=== PATIENT | female | born 2000 | race Caucasian/White ===

== ENCOUNTER 2019-11-27 22:26 | Emergency (ER) | payer MEDICAID ==
[~2019-11-27] VITALS: Ht 175.3 cm; Wt 95.3 kg
--- NOTE | 2019-11-27 22:26 | NUR ---
C/O COUGH, CONGEST, FEVER, SOB X3 DAYS. CP WHEN COUGHING, PT AWAKE, ALERT, AAXO4, NAD NOTED, PENDING MD CHAVEZ
--- NOTE | 2019-11-27 23:44 | NUR ---
pt to bed 18
--- NOTE | 2019-11-28 00:05 | NUR ---
pt resting quietly, no acute distress noted, resp even and unlabored. call light within reach. will continue to monitor pt.
[2019-11-28 00:16] LABS: BASOPHILS % (AUTO) 0.5 % (0.0-2.0); EOSINOPHILS % (AUTO) 3.1 % (0.0-6.0); HEMATOCRIT 41 % (33-45); HEMOGLOBIN 13.6 g/dL (11.5-14.8); LYMPHOCYTES # (AUTO) 0.8 /CMM (0.8-4.8); LYMPHOCYTES % (AUTO) 15.6 % (20.0-44.0); MEAN CORPUSCULAR HGB CONC 33 g/dl (31.0-36.0); MEAN CORPUSCULAR VOLUME 91 fL (82-100); MONOCYTES # (AUTO) 0.8 /CMM (0.1-1.30); MONOCYTES % (AUTO) 14.7 % (2.0-12.0); NEUTROPHILS # (AUTO) 3.6 /CMM (1.8-8.9); NEUTROPHILS % (AUTO) 66.1 % (43.0-81.0); PLATELET COUNT (AUTO) 211 /CMM (150-450); RED BLOOD CELL COUNT(AUTO) 4.49 MIL/uL (4.0-5.2); WHITE BLOOD COUNT (AUTO) 5.4 K/uL (4.3-11.0)
[2019-11-28 00:27] LABS: CALCIUM, SERUM 9.2 mg/dL (8.5-10.1); CREATININE 0.8 mg/dL (0.6-1.3); POTASSIUM 3.6 mmol/L (3.5-5.1)
--- NOTE | 2019-11-28 01:16 | NUR ---
pt resting quietly, no acute distress noted, resp even and unlabored. call light within reach. will continue to monitor pt.
--- NOTE | 2019-11-28 03:21 | NUR ---
er md at bedside talking to pt regarding lab, ct result and discharge.
--- NOTE | 2019-11-28 03:29 | NUR ---
IV removed. Catheter intact and site benign. Pressure and 4x4 applied to site. No bleeding noted. Patient discharged to home in stable condition. Written and verbal after care instructions given. Patient verbalizes understanding of instruction. ambulatory with a steady gait noted. pt aaox4 no acute distress noted, resp even and unlabored. pt s/o at bedside to take pt home.
[2019-11-28 03:32] VITALS: BP 128/63
== END 2019-11-28 03:33 | disposition home or self-care (01) ==
LOC: ER 22:26
DX: R07.89 Other chest pain (principal)
CPT/HCPCS: 36415; 71046; 80048-TC; 85025-TC; 85378-TC